=== PATIENT | male | born 1990 | race African-American/Black ===

== ENCOUNTER 2017-01-26 15:43 | Inpatient (IN) | payer OTHER ==
[~2017-01-26 15:43] MED LIST: BACTRIM,SEPT1 TABLET PO; LEVAQUIN500 MG PO; LOTRIMIN AF SP150 GM TP; NAPROSYN500 MG PO; NEUTRA-PHOS,1 PACKET PO; NICOTINE PATCH1 EAC1 TD; PERCOCET 5/31 TABLET PO; TYLENOL WITH C1 EACH PO
[2017-01-26 15:54] LABS: EOSINOPHIL (%) 0.6 % (0-5); IMMATURE GRANULOCYTE (%) 0.3 % (0.0-0.7); INSTRUMENT ABS NEUTROPHIL CT 2.2 K/uL; LYMPHOCYTE COUNT 3.8 K/uL (1.0-2.8); MCH 28.7 PG (29.0-34.0); MCHC 32.2 G/DL (30.0-36.0); MCV 89.2 FL (86-99); MEAN PLAT.VOLUME 9.3 uM^3 (9.0-12.4); MONOCYTE (%) 7.7 % (3-12); MONOCYTE COUNT 0.5 K/uL (0-0.8); NEUTROPHIL (%) 33.4 % (45-76); NEUTROPHIL COUNT 2.2 K/uL (1.8-6.4); PLATELET COUNT 326 K/uL (156-360); RBC DIS.WIDTH-CV 13.5 % (11.8-14.6); RBC DIS.WIDTH-SD 44.4 % (39-53); RED BLOOD COUNT 4.15 M/uL (4.00-5.50); WHITE BLOOD COUNT 6.6 K/uL (4.1-10.2)
[2017-01-26 16:02] LABS: AMYLASE 57 IU/L (1-118); CHLORIDE 108 mEq/L (99-109); POTASSIUM 3.4 mEq/L (3.7-5.4); SODIUM 141 mEq/L (136-147)
[2017-01-26 16:04] LABS: GLUCOSE 107 mg/dL (70-99)
[2017-01-26 16:06] LABS: ANION GAP 17 MEQ/L (2-14)
[2017-01-26 16:07] LABS: SERUM ETHYL ALCOHOL 102 mg/dL
[2017-01-26 16:08] LABS: GFR ESTIMATE (CALCULATED) > 59 mL/min/
[2017-01-26 16:09] LABS: UREA NITROGEN (BUN) 15 mg/dL (9-23)
[2017-01-26 16:11] LABS: LIPASE 33 U/L (1.0-51.0)
[2017-01-26 16:43] LABS: TROP-I INTERPRETATION NEGATIVE; TROPONIN-I < 0.01 ng/mL (0.0-0.30)
[2017-01-26 17:43] LABS: ADD MIUA? YES; BILIRUBIN NEGATIVE; BLOOD NEGATIVE; COLOR YELLOW ((YELLOW)); GLUCOSE (STRIP) NEGATIVE; KETONES 5; LEUKOCYTES NEGATIVE; NITRITE NEGATIVE; PROTEIN (STRIP) 100; SPECIFIC GRAVITY 1.029 (1.000-1.030); UROBILINOGEN 0.2 MG/DL (0.2-1.0)
[2017-01-26 17:50] LABS: AMPHETAMINE NEGATIVE (500 ng/mL); BARBITURATES NEGATIVE (200 ng/mL); BENZODIAZEPINES NEGATIVE (150 ng/mL); COCAINE NEGATIVE (150 ng/mL); INTERNAL CONTROLS VALID? YES; METHADONE NEGATIVE (200 ng/mL); METHAMPHETAMINE NEGATIVE (500 ng/mL); OPIATES (MORPHINE) NEGATIVE (100 ng/mL); OXYCODONE NEGATIVE (100 ng/mL); PHENCYCLIDINE NEGATIVE (25 ng/mL); PROPOXYPHENE NEGATIVE (300 ng/mL); THC CANNABINOIDS PRESUMPTIVE POSITIVE (50 ng/mL); TRICYCLIC ANTIDEPRESSANTS NEGATIVE (300 ng/mL)
[2017-01-26 17:51] LABS: ADD MEDTOX COMMENT Y
[2017-01-26 18:09] LABS: BACTERIA NONE SEEN /HPF; EPITHELIAL CELLS RARE /HPF; HYALINE CASTS 0-5 /LPF; MUCUS TRACE /LPF; RED BLOOD CELLS 0-5 /HPF (0-5); UCUL ADDED? NO; WHITE BLOOD CELLS 0-5 /HPF (0-5)
[2017-01-26 18:47] LABS: HEMATOCRIT 30.8 % (38.0-50.0); HEMATOLOGY COMMENT 1 SN; MCH 29.7 PG (29.0-34.0); MCHC 32.1 G/DL (30.0-36.0); MCV 92.5 FL (86-99); MEAN PLAT.VOLUME 9.5 uM^3 (9.0-12.4); PLAT.SUFFICIENCY ADEQUATE; RBC DIS.WIDTH-CV 13.2 % (11.8-14.6); RBC DIS.WIDTH-SD 44.9 % (39-53); RED BLOOD COUNT 3.33 M/uL (4.00-5.50)
[2017-01-26 18:56] LABS: ANION GAP 8 MEQ/L (2-14); CHLORIDE 118 MEQ/L (99-109); GFR ESTIMATE (CALCULATED) > 59 mL/min/; POTASSIUM 3.3 MEQ/L (3.7-5.4); SAMPLE HEMOLYSIS CHECK 0; SAMPLE ICTERIC CHECK 0; SAMPLE LIPEMIA CHECK 0; SODIUM 144 MEQ/L (136-147); UREA NITROGEN (BUN) 12 mg/dL (9-23)
[2017-01-26 19:01] LABS: GLUCOSE 68 mg/dL (70-99)
[2017-01-26 19:17] LABS: PLATELET COUNT 204 K/uL (156-360)
[2017-01-26 19:45] VITALS: BP 134/71
[2017-01-26 23:36] VITALS: BP 135/58
[2017-01-27] VITALS (12 sets, daily range): BP systolic 119–147; BP diastolic 64–78
[2017-01-27 08:09] LABS: ALKALINE PHOSPHATASE 58 IU/L (3-129); ANION GAP 8 MEQ/L (2-14); GFR ESTIMATE (CALCULATED) > 59 mL/min/; SAMPLE HEMOLYSIS CHECK 0; SAMPLE ICTERIC CHECK 0; SAMPLE LIPEMIA CHECK 0; TOTAL BILIRUBIN 0.7 MG/DL (0.0-1.0); UREA NITROGEN (BUN) 13 mg/dL (9-23)
[2017-01-27 08:11] LABS: CHLORIDE 101 MEQ/L (99-109); GLUCOSE 200 mg/dL (70-99); POTASSIUM 4.9 MEQ/L (3.7-5.4); SODIUM 131 MEQ/L (136-147)
[2017-01-27 08:21] LABS: HEMATOCRIT 19.9 % (38.0-50.0); MCH 30.1 PG (29.0-34.0); MCHC 34.2 G/DL (30.0-36.0); MCV 88.1 FL (86-99); PLATELET COUNT 220 K/uL (156-360); RBC DIS.WIDTH-CV 13.3 % (11.8-14.6); RBC DIS.WIDTH-SD 43.1 % (39-53); RED BLOOD COUNT 2.26 M/uL (4.00-5.50); WHITE BLOOD COUNT 19.5 K/uL (4.1-10.2)
[2017-01-27 21:39] LABS: HEMATOCRIT 21.6 % (38.0-50.0); MCV 85.7 FL (86-99)
[2017-01-28] VITALS (12 sets, daily range): BP systolic 130–148; BP diastolic 61–77
[2017-01-28 05:54] LABS: HEMATOCRIT 18.5 % (38.0-50.0); MCH 30.6 PG (29.0-34.0); MCHC 35.7 G/DL (30.0-36.0); MCV 85.6 FL (86-99); RBC DIS.WIDTH-CV 13.9 % (11.8-14.6); RBC DIS.WIDTH-SD 42.9 % (39-53); RED BLOOD COUNT 2.16 M/uL (4.00-5.50)
[2017-01-28 06:04] LABS: ANION GAP 7 MEQ/L (2-14); CHLORIDE 100 MEQ/L (99-109); GFR ESTIMATE (CALCULATED) > 59 mL/min/; GLUCOSE 115 mg/dL (70-99); POTASSIUM 3.9 MEQ/L (3.7-5.4); SAMPLE HEMOLYSIS CHECK 0; SAMPLE ICTERIC CHECK 0; SAMPLE LIPEMIA CHECK 0; SODIUM 134 MEQ/L (136-147); UREA NITROGEN (BUN) 7 mg/dL (9-23)
[2017-01-28 06:06] LABS: WHITE BLOOD COUNT 12.6 K/uL (4.1-10.2)
[2017-01-28 07:01] LABS: MEAN PLAT.VOLUME 10.1 uM^3 (9.0-12.4); PLAT.SUFFICIENCY ADEQUATE
[2017-01-28 07:15] LABS: PLATELET COUNT 153 K/uL (156-360)
[2017-01-28 18:38] LABS: HEMATOCRIT 26.1 % (38.0-50.0); MCV 83.7 FL (86-99)
[2017-01-29] VITALS (7 sets, daily range): BP systolic 120–163; BP diastolic 57–94
[2017-01-29 05:49] LABS: HEMATOCRIT 21.7 % (38.0-50.0); MCH 29.3 PG (29.0-34.0); MCHC 34.6 G/DL (30.0-36.0); MCV 84.8 FL (86-99); PLATELET COUNT 152 K/uL (156-360); RBC DIS.WIDTH-CV 14.3 % (11.8-14.6); RBC DIS.WIDTH-SD 43.8 % (39-53); RED BLOOD COUNT 2.56 M/uL (4.00-5.50); WHITE BLOOD COUNT 9.8 K/uL (4.1-10.2)
[2017-01-29 05:59] LABS: ANION GAP 7 MEQ/L (2-14); CHLORIDE 99 MEQ/L (99-109); GFR ESTIMATE (CALCULATED) > 59 mL/min/; GLUCOSE 90 mg/dL (70-99); POTASSIUM 3.6 MEQ/L (3.7-5.4); SAMPLE HEMOLYSIS CHECK 0; SAMPLE ICTERIC CHECK 0; SAMPLE LIPEMIA CHECK 0; SODIUM 135 MEQ/L (136-147); UREA NITROGEN (BUN) 5 mg/dL (9-23)
[2017-01-30 04:10] VITALS: BP 126/68
[2017-01-30 06:30] LABS: HEMATOCRIT 22.2 % (38.0-50.0); MCH 29.3 PG (29.0-34.0); MCHC 33.8 G/DL (30.0-36.0); MCV 86.7 FL (86-99); MEAN PLAT.VOLUME 9.8 uM^3 (9.0-12.4); RBC DIS.WIDTH-CV 14.1 % (11.8-14.6); RBC DIS.WIDTH-SD 43.8 % (39-53); RED BLOOD COUNT 2.56 M/uL (4.00-5.50); WHITE BLOOD COUNT 7.5 K/uL (4.1-10.2)
[2017-01-30 06:53] LABS: ANION GAP 8 MEQ/L (2-14); CHLORIDE 100 MEQ/L (99-109); GFR ESTIMATE (CALCULATED) > 59 mL/min/; GLUCOSE 99 mg/dL (70-99); POTASSIUM 3.7 MEQ/L (3.7-5.4); SAMPLE HEMOLYSIS CHECK 0; SAMPLE ICTERIC CHECK 0; SAMPLE LIPEMIA CHECK 0; SODIUM 138 MEQ/L (136-147); UREA NITROGEN (BUN) 5 mg/dL (9-23)
[2017-01-30 07:00] LABS: PLATELET COUNT 210 K/uL (156-360)
[2017-01-30 07:39] VITALS: BP 126/57
[2017-01-30 11:34] VITALS: BP 130/60
[2017-01-30 15:46] VITALS: BP 129/60
[2017-01-31] VITALS: BP 110/54
[2017-01-31 07:54] VITALS: BP 119/65
== END 2017-01-31 16:04 | disposition left against medical advice (07) | DRG 501 ==
LOC: TRA 15:43 → SDC 16:08 → 2SOUTH 17:55 → 3EAST 17:55
PROVIDERS: Emergency Medicine; Surgery
DX: S56.522A Laceration of other extensor muscle, fascia and tendon at forearm level, left arm, initial encounter (principal); S76.021A Laceration of muscle, fascia and tendon of right hip, initial encounter; D62 Acute posthemorrhagic anemia; S30.811A Abrasion of abdominal wall, initial encounter; F10.129 Alcohol abuse with intoxication, unspecified; F12.10 Cannabis abuse, uncomplicated; F15.90 Other stimulant use, unspecified, uncomplicated; F43.20 Adjustment disorder, unspecified; K59.00 Constipation, unspecified; F17.210 Nicotine dependence, cigarettes, uncomplicated; X78.9XXA Intentional self-harm by unspecified sharp object, initial encounter; Y90.5 Blood alcohol level of 100-119 mg/100 ml; Z59.0 Homelessness; Z91.19 Patient's noncompliance with other medical treatment and regimen
CPT/HCPCS: 80048; 80048 91; 80053; 81003; 82040; 82150; 83690; 84484; 84999; 85014; 85018; 85025; 85027; 86850; 86900; 86901; 86920; 99281; 99285; G0480; J0330; J0610; J0690; J1170; J1650; J2250; J2405; J2710; J3010; J3480; J7050; P9016